=== PATIENT | male | born 1990 | race Caucasian/White ===

== ENCOUNTER 2019-09-02 11:09 | Emergency (ER) | payer MEDICAID ==
[~2019-09-02] VITALS: Ht 175.3 cm; Wt 64.0 kg
[~2019-09-02 11:09] MED LIST: BENZ1TAB61 PO; RISP1TAB45 PO
--- NOTE | 2019-09-02 11:50 | NUR ---
SHEET METAL INSULATOR: PT TO ROOM FROM LOBBY
--- NOTE | 2019-09-02 11:56 | NUR ---
FIRST CONTACT WITH PT. PT C/O N/V IN THE AM X 3 WEEKS W ABD PAIN. PT'S AOX4. RESPS EVEN AND UNLABORED. BP/SPO2 MONITORS IN PLACE. PT'S AOX4. RESPS EVEN AND UNLABORED.
--- NOTE | 2019-09-02 11:58 | NUR ---
LAB AT BEDSIDE.
[2019-09-02 12:06] LABS: BASOPHILS # (AUTO) 0.02 x10^3/uL (0-0.1); BASOPHILS % (AUTO) 0 % (0-1); EOSINOPHILS # (AUTO) 0.01 x10^3/uL (0-0.4); EOSINOPHILS % (AUTO) 0 % (1-7); LYMPHOCYTES # (AUTO) 1.01 x10^3/uL (1-3.4); LYMPHOCYTES % (AUTO) 13 % (22-44); MD NO; MEAN CORPUSCULAR HEMOGLOBIN 32.3 pg (27.5-34.5); MEAN CORPUSCULAR HGB CONC 34.1 g/dL (33.2-36.2); MEAN CORPUSCULAR VOLUME 94.8 fL (81-97); MONOCYTES # (AUTO) 0.27 x10^3/uL (0.2-0.8); MONOCYTES % (AUTO) 3 % (2-9); NEUTROPHILS # (AUTO) 6.45 x10^3/uL (1.8-6.8); NEUTROPHILS % (AUTO) 83 % (42-75); PLATELET COUNT 252 x10^3/uL (130-400); RED BLOOD COUNT 5.07 x10^6/uL (4.38-5.82); RED CELL DISTRIBUTION WIDTH 13.7 % (9.4-14.8)
[2019-09-02 12:15] LABS: ALANINE AMINOTRANSFERASE 23 U/L (12-78); ALBUMIN 4.7 g/dL (3.4-5.0); ANION GAP 12 mmol/L (5-15); CALCIUM 9.5 mg/dL (8.5-10.1); CHLORIDE 104 mmol/L (98-107); CREATININE 0.95 mg/dL (0.7-1.3)
[2019-09-02 12:17] LABS: ALKALINE PHOSPHATASE 109 U/L (45-117); BILIRUBIN,TOTAL 1.5 mg/dL (0.2-1.0); TOTAL PROTEIN 8.9 g/dL (6.4-8.2)
--- NOTE | 2019-09-02 12:17 | NUR ---
PT AMB TO BR WITH STEADY GAIT. URINE CUP GIVEN.
--- NOTE | 2019-09-02 12:20 | NUR ---
URINE COLLECTED AND UA SENT.
[2019-09-02 12:38] LABS: MICROSCOPIC AUTO
--- NOTE | 2019-09-02 13:19 | NUR ---
PA AT BEDSIDE TO RECHECK AT THIS TIME.
--- NOTE | 2019-09-02 13:33 | NUR ---
PT BACK TO ROOM FROM XRAY AT THIS TIME.
[2019-09-02 13:51] VITALS: BP 112/65
--- NOTE | 2019-09-02 13:58 | NUR ---
PA AT BEDSIDE TO EXPLAIN ALL RESULTS AT THIS TIME.
== END 2019-09-02 14:10 | disposition home or self-care (01) ==
LOC: ED 13:35
DX: K21.0 Gastro-esophageal reflux disease with esophagitis (principal); R11.2 Nausea with vomiting, unspecified; Z88.0 Allergy status to penicillin
CPT/HCPCS: 36415; 74021; 80053; 81001; 83690; 85025; 99284

== ENCOUNTER 2020-08-10 19:33 | Emergency (ER) | payer MEDICAID ==
[~2020-08-10] VITALS: Ht 172.7 cm; Wt 67.2 kg
[2020-08-10 19:43] VITALS: BP 154/85
[2020-08-10] MEDS ORDERED: DIPH,PERTUSS(ACELL),TET VAC/PF 0.5 ML IM-VACC ONE ×2 (20:00→20:23)
[2020-08-10] MEDS ORDERED: LIDOCAINE 1%, 10ML INFIL ONE (20:00)
[2020-08-10] MEDS ORDERED: LIDOCAINE-MPF 1%, 5ML ONE (20:26)
[2020-08-10] MEDS ORDERED: LIDOCAINE-MPF 1%, 2ML INFIL ONE (20:30)
[2020-08-10] MEDS ORDERED: NEOSPORIN OINT. PKT 1 PACKET ONE (20:42)
== END 2020-08-10 21:26 | disposition home or self-care (01) ==
LOC: MERGE 19:33 → ED 20:40
DX: S61.011A Laceration without foreign body of right thumb without damage to nail, initial encounter (principal); F17.210 Nicotine dependence, cigarettes, uncomplicated; Z88.0 Allergy status to penicillin; W45.8XXA Other foreign body or object entering through skin, initial encounter; Y93.89 Activity, other specified; Y92.009 Unspecified place in unspecified non-institutional (private) residence as the place of occurrence of the external cause; Y99.8 Other external cause status
CPT/HCPCS: 12041; 90471; 90715; 99284

== ENCOUNTER 2020-08-19 16:08 | Emergency (ER) | payer MEDICAID ==
[~2020-08-19] VITALS: Ht 175.3 cm; Wt 69.9 kg
[2020-08-19 16:16] VITALS: BP 108/64
--- NOTE | 2020-08-19 16:21 | NUR ---
SUTURES REMOVED BY PA IN TRIAGE. PT PROVIDED DC INFORMATION AND VERBALIZES UNDERSTANDING
== END 2020-08-19 16:33 | disposition home or self-care (01) ==
LOC: ED 16:25
DX: S61.411D Laceration without foreign body of right hand, subsequent encounter (principal); F17.210 Nicotine dependence, cigarettes, uncomplicated; X58.XXXD Exposure to other specified factors, subsequent encounter
CPT/HCPCS: 99282